=== PATIENT | female | born 1995 | race Two or more races ===

== ENCOUNTER 2021-04-08 11:28 | Inpatient (IN) | payer MEDICAID ==
[~2021-04-08] VITALS: Ht 167.6 cm; Wt 97.5 kg
[2021-04-08] MEDS ORDERED: BUTORPHANOL TARTRATE 2 MG/1 ML VIAL IV PRN ×2 (13:15)
[2021-04-08] MEDS ORDERED: DERMOPLAST 60ML BOTTLE TOP PRN (13:15)
[2021-04-08] MEDS ORDERED: LIDOCAINE 2%HCL (LOCAL ANESTH.) INJ 20ML MDV IJ PRN (13:15)
[2021-04-08] MEDS ORDERED: PHISODERM TOP SOLN 240ML BTL TOP PRN (13:15)
[2021-04-08] MEDS ORDERED: PROMETHAZINE HCL 25 MG/ML 1ML IV PRN (13:15)
[2021-04-08] MEDS ORDERED: WITCH HAZEL-GLYCERIN PAD TOP PRN (13:15)
[2021-04-08] MEDS: LACTATED RINGER'S 1,000 ML IV SCH ×2 (13:25→22:42)
[2021-04-08 13:36] LABS: Urine Bacteria FEW /hpf (None Seen); Urine Blood Negative /uL (Negative); Urine Hyaline Cast FEW /lpf (0 - 2); Urine Mucus FEW (None Seen); Urine Specific Gravity 1.027 (1.001-1.035); Urine WBC 6 /hpf (0 - 5)
[2021-04-08 13:37] LABS: Basophils # (auto) 0 10 ^3/uL (0-0.2); Basophils % (auto) 0.8 % (0.0-2.0); Eosinophils # (auto) 0.1 10 ^3/uL (0-0.8); Eosinophils % (auto) 1.9 % (0.0-7.0); Hematocrit 34.9 % (36.0-46.0); Hemoglobin 11.8 g/dL (12.2-16.2); Lymphocytes # (auto) 1.2 10 ^3/uL (0.4-5.4); Lymphocytes % (auto) 23.4 % (10.0-50.0); Mean Corpuscular Hemoglobin 29.4 pg (28.0-32.0); Mean Corpuscular Volume 86.6 fL (80.0-100.0); Monocytes # (auto) 0.4 10 ^3/uL (0-1.3); Monocytes % (auto) 7.3 % (0.0-12.0); Neutrophils # (auto) 3.5 10 ^3/uL (1.6-8.6); Neutrophils % (auto) 66.6 % (37.0-80.0); Nucleated Red Blood Cells % 0.1 %; Red Blood Cells 4.03 10^6/uL (4.0-5.20); Red Cell Distribution Width 15.3 % (11.8-14.3); White Blood Cell 5.3 10^3/uL (4.4-10.8)
[2021-04-08 13:53] LABS: INR 0.92 (0.9-1.15); Partial Thromboplastin Time 25.6 sec (23.6-33.0)
[2021-04-08 13:58] LABS: Amphetamine Screen, Urine NEGATIVE (NEGATIVE); Barbiturate Scree,Urine NEGATIVE (NEGATIVE); Benzodiazephine Screen, Urine NEGATIVE (NEGATIVE); Cannabinoid Screen, Urine NEGATIVE (NEGATIVE); Cocaine Screen, Urine NEGATIVE (NEGATIVE); Opiate Scree,Urine NEGATIVE (NEGATIVE); Phencyclidine Screen, Urine NEGATIVE (NEGATIVE)
[2021-04-08] MEDS: miSOPROStol 50 MCG per PRE-CUT 1/2 TAB PO PRN ×2 (14:36→18:31)
[2021-04-08 14:58] LABS: Albumin 2.3 g/dL (3.4-5.0); Potassium 4.3 mmol/L (3.5-5.1)
[2021-04-08 15:03] LABS: BUN/Creatinine Ratio 13.6; Bilirubin, Total 0.2 mg/dL (0.2-1.0); Total Protein 6.3 g/dL (6.4-8.2); Uric Acid 6.1 mg/dL (2.6-6.0)
[2021-04-08] MEDS ORDERED: TERBUTALINE SULFATE 1 MG/ML 1ML VIAL SC PRN (19:00)
[2021-04-08] MEDS ORDERED: LACT. RINGERS/OXYTOCIN 20UNITS 1,000 ML IV SCH (19:00)
[2021-04-08] MEDS ORDERED: LACT. RINGERS/OXYTOCIN 20UNITS 500 ML IV ONE ×2 (19:00→19:30)
[2021-04-08] MEDS ORDERED: MAGNESIUM SULFATE 100 ML IV ONE (19:15)
[2021-04-08] MEDS ORDERED: miSOPROStol 100 mcg TAB PR PRN (19:30)
[2021-04-08] MEDS ORDERED: ONDANSETRON HCL 4 MG/2 ML VIAL IV PRN (19:30)
[2021-04-08] MEDS ORDERED: miSOPROStol 100 mcg TAB SL PRN (19:30)
[2021-04-08] MEDS ORDERED: TRANEXAMIC ACID 1,000 MG in SODIUM CHL 0.9% 100 ML IV ONE (19:30)
[2021-04-08] MEDS ORDERED: LORazepam 2MG/ML-1ML VIAL IV ONE (20:00)
[2021-04-08] MEDS: MAGNESIUM SULFATE 40MG/ML 1,000 ML IV SCH (20:31)
[2021-04-08] MEDS ORDERED: DIPHENOXYLATE W/ATROPINE 2.5 MG TAB PO SCH (22:00)
[2021-04-09] VITALS (10 sets, daily range): BP systolic 112–147; BP diastolic 69–93
[2021-04-09] MEDS ORDERED: METHYLERGONOVINE MALEATE 0.2 MG/ML AMP IM PRN (02:00)
[2021-04-09] MEDS ORDERED: miSOPROStol 100 mcg TAB SL PRN (02:00)
[2021-04-09] MEDS ORDERED: miSOPROStol 100 mcg TAB PR PRN ×2 (02:00→20:45)
[2021-04-09] MEDS ORDERED: ROPIVACAINE HCL 200 ML EPI SCH (03:40)
[2021-04-09] MEDS ORDERED: LACTATED RINGER'S 1,000 ML IV ONE (03:40)
[2021-04-09] MEDS ORDERED: ePHEDrine SULFATE 50 MG/ML AMP IV ONE ×2 (03:40→08:15)
[2021-04-09] MEDS ORDERED: NALOXONE HCL 0.4 MG/ML VIAL IV ONE ×2 (03:45→08:15)
[2021-04-09] MEDS: LACTATED RINGER'S 1,000 ML IV SCH ×5 (04:49→21:15)
[2021-04-09] MEDS ORDERED: LIDOCAINE HCL 2 %PF INJ 10ML AMP IJ ONE (08:15)
[2021-04-09] MEDS ORDERED: fentaNYL CITRATE 100 MCG/2 ML VL EPI ONE (08:15)
[2021-04-09] MEDS ORDERED: TRANEXAMIC ACID 1,000 MG in SODIUM CHL 0.9% 100 ML IV ONE (09:45)
[2021-04-09] MEDS ORDERED: AZITHROMYCIN 500MG/ 250ML 250 ML IV ONE (15:15)
[2021-04-09] MEDS ORDERED: ceFAZolin 2 GM in D5W 5% 100 ML IV ONE (15:15)
[2021-04-09] MEDS ORDERED: fentaNYL CITRATE 100 MCG/2 ML VL ONE (15:54)
[2021-04-09] MEDS ORDERED: MORPHINE SULF PF 2 MG/2 ML SYRG ONE ×2 (15:54→15:55)
[2021-04-09] MEDS ORDERED: GLYCOPYRROLATE 0.2 MG/ML 1ML VIAL ONE (15:55)
[2021-04-09] MEDS ORDERED: PHENYLEPHRINE HCL 10 MG/ML VL ONE (15:55)
[2021-04-09] MEDS ORDERED: PROPOFOL 10 MG/ML 20 ML IV ONE (15:55)
[2021-04-09] MEDS ORDERED: oxyTOCIN 10 UNIT/ML 10ML VIAL ONE (15:55)
[2021-04-09] MEDS ORDERED: LIDOCAINE 2% (LOCAL ANESTH.) PF 5ml SDV ONE (15:55)
[2021-04-09] MEDS ORDERED: ONDANSETRON HCL 4 MG/2 ML VIAL ONE (15:55)
[2021-04-09] MEDS ORDERED: SUCCINYLCHOLINE CHLORIDE 20 MG/ML 10ML VIAL IV ONE (16:00)
[2021-04-09] MEDS ORDERED: BUPIVACAINE/DEXTROSE MPF 0.75% 2 ML AMP IT ONE (16:11)
[2021-04-09] MEDS ORDERED: GUM (CHEWING) 1 GUM CHEW CHEW ONE (17:15)
[2021-04-09] MEDS ORDERED: KETOROLAC TROMETH 30 MG/ML 1ML VIAL IV PRN ×2 (17:15→17:45)
[2021-04-09] MEDS ORDERED: ePHEDrine SULFATE 50 MG/ML AMP IV PRN (17:15)
[2021-04-09] MEDS ORDERED: ceFAZolin 1GM/50ML 50 ML IV ONE (17:15)
[2021-04-09] MEDS ORDERED: MORPHINE SULFATE 4 MG/ML SYR/VIAL IV PRN (17:15)
[2021-04-09] MEDS ORDERED: ONDANSETRON HCL 4 MG/2 ML VIAL IV PRN ×2 (17:45)
[2021-04-09] MEDS ORDERED: diphenhdrAMINE HCL 50 MG/1 ML VL IV PRN (17:45)
[2021-04-09] MEDS ORDERED: NALOXONE HCL 0.4 MG/ML VIAL IV PRN (17:45)
[2021-04-09] MEDS ORDERED: DexAMETHasone SOD PHOS 10MG/1ML VIAL INJ IV PRN (17:45)
[2021-04-09] MEDS ORDERED: KETOROLAC TROMETH 30 MG/ML 1ML VIAL IV ONE (17:45)
[2021-04-09] MEDS: MAGNESIUM SULFATE 40MG/ML 1,000 ML IV SCH (21:07)
[2021-04-09] MEDS: DOCUSATE SOD 100 MG CAP PO SCH (23:53)
[2021-04-10] VITALS (19 sets, daily range): BP systolic 105–132; BP diastolic 56–90
[2021-04-10] MEDS: LACTATED RINGER'S 1,000 ML IV SCH ×2 (00:30→09:25)
[2021-04-10 05:11] LABS: RPR Non Reactive (Non Reactive)
[2021-04-10] MEDS: IBUPROFEN 600 MG TAB PO SCH ×3 (05:40→17:50)
[2021-04-10] MEDS ORDERED: HYDROcodone-ACET 5/325MG TAB PO PRN ×2 (06:00)
[2021-04-10 06:06] LABS: Basophils # (auto) 0 10 ^3/uL (0-0.2); Basophils % (auto) 0.2 % (0.0-2.0); Eosinophils # (auto) 0 10 ^3/uL (0-0.8); Hematocrit 32.8 % (36.0-46.0); Hemoglobin 11.2 g/dL (12.2-16.2); Lymphocytes # (auto) 1.3 10 ^3/uL (0.4-5.4); Lymphocytes % (auto) 10.5 % (10.0-50.0); Mean Corpuscular Hemoglobin 29.5 pg (28.0-32.0); Mean Corpuscular Hgb Conc. 34.2 g/dL (32.0-36.0); Mean Corpuscular Volume 86.3 fL (80.0-100.0); Monocytes # (auto) 0.8 10 ^3/uL (0-1.3); Monocytes % (auto) 6.8 % (0.0-12.0); Neutrophils % (auto) 82.5 % (37.0-80.0); Red Cell Distribution Width 15.5 % (11.8-14.3); White Blood Cell 12.1 10^3/uL (4.4-10.8)
[2021-04-10] MEDS: DOCUSATE SOD 100 MG CAP PO SCH (22:00)
[2021-04-11] MEDS: IBUPROFEN 600 MG TAB PO SCH ×4 (00:01→19:22)
[2021-04-11] MEDS: SIMETHICONE 80 MG CHEWABLE TABLET PO SCH ×5 (00:01→22:45)
[2021-04-11 03:00] VITALS: BP 126/72
[2021-04-11 07:03] VITALS: BP 120/72
[2021-04-11 11:00] VITALS: BP 123/81
[2021-04-11 14:58] VITALS: BP 133/88
[2021-04-11 19:00] VITALS: BP 125/77
[2021-04-11] MEDS: DOCUSATE SOD 100 MG CAP PO SCH (22:44)
[2021-04-11 23:00] VITALS: BP 125/79
[2021-04-12] MEDS: IBUPROFEN 600 MG TAB PO SCH ×3 (00:06→11:31)
[2021-04-12 03:00] VITALS: BP 132/87
[2021-04-12] MEDS: SIMETHICONE 80 MG CHEWABLE TABLET PO SCH ×2 (05:45→11:31)
[2021-04-12 07:00] VITALS: BP 127/60
[2021-04-12 11:00] VITALS: BP 134/88
[2021-04-12 11:42] VITALS: BP 134/88
[2021-04-12] MEDS ORDERED: TETANUS-DIPTH-ACEL PERTUSSIS 0.5ML SYR Tdap IM ONE (13:00)
[2021-04-12] MEDS ORDERED: DOCU100C10 PO (13:36)
[2021-04-12] MEDS ORDERED: IBUP600T27 PO (13:37)
[2021-04-12] MEDS ORDERED: HYDR-4833 PO (13:38)
[2021-04-12 15:00] VITALS: BP 132/79
== END 2021-04-12 15:10 | disposition home or self-care (01) | DRG 540 ==
LOC: LDRP 11:28 → OBSVTOIN 13:03 → LDRP 13:54
PROVIDERS: ADMIT Obstetrics & Gynecology; ATTEND Obstetrics & Gynecology
PROC: 10907ZC Drainage of Amniotic Fluid, Therapeutic from Products of Conception, Via Natural or Artificial Opening (ICD-10-PCS; 2021-04-09)
PROC: 10D00Z1 Extraction of Products of Conception, Low, Open Approach (ICD-10-PCS; principal; 2021-04-09 16:18)
DX: O14.04 Mild to moderate pre-eclampsia, complicating childbirth (principal); O12.14 Gestational proteinuria, complicating childbirth; O62.1 Secondary uterine inertia; O48.0 Post-term pregnancy; Z20.822 Contact with and (suspected) exposure to COVID-19; Z37.0 Single live birth; Z3A.40 40 weeks gestation of pregnancy
CPT/HCPCS: 36415; 59025; 76818; 80053; 80307; 81001; 81002; 82570; 83735; 84156; 84550; 85025; 85610; 85730; 86592; 86850; 86900; 86901; 87426; 90715; 94760; 94762; 96360; 96361; 96365; 96366; G0378; J0330; J0690; J2001; J2405; J2590; J2704; J7060

== ENCOUNTER 2022-09-01 15:45 | Emergency (ER) | payer MEDICAID ==
[~2022-09-01] VITALS: Ht 170.2 cm; Wt 87.6 kg
[~2022-09-01 15:45] MED LIST: DOCU100C10 PO; HYDR-4833 PO; IBUP600T27 PO
[2022-09-01 16:21] VITALS: BP 122/73
[2022-09-01 16:30] LABS: Urine Bacteria NONE SEEN /hpf (None Seen); Urine Blood 3+ /uL (Negative); Urine Mucus FEW (None Seen); Urine Specific Gravity 1.024 (1.001-1.035); Urine WBC 6 /hpf (0 - 5)
== END 2022-09-01 17:11 | disposition home or self-care (01) ==
LOC: ER 15:45
DX: O20.0 Threatened abortion (principal); Z79.1 Long term (current) use of non-steroidal anti-inflammatories (NSAID); Z79.899 Other long term (current) drug therapy; Z3A.15 15 weeks gestation of pregnancy
CPT/HCPCS: 76805; 81001